=== PATIENT | female | born 1990 | race African-American/Black ===

== ENCOUNTER 2017-06-24 16:13 | Emergency (ER) | payer OTHER ==
[2017-06-24] MEDS ORDERED: Bacitracin Zinc 1 Packet ONE (16:44)
[2017-06-24] MEDS ORDERED: Adacel (T-DAP) 0.5 ML VIAL ONE (16:44)
== END 2017-06-24 17:05 | disposition home or self-care (01) ==
LOC: ERS 16:13
DX: S91.331A Puncture wound without foreign body, right foot, initial encounter (principal); S91.311A Laceration without foreign body, right foot, initial encounter; F17.210 Nicotine dependence, cigarettes, uncomplicated; Z23 Encounter for immunization; W22.8XXA Striking against or struck by other objects, initial encounter
CPT/HCPCS: 90471; 90715

== ENCOUNTER 2017-11-29 01:45 | Emergency (ER) | payer OTHER, SELFPAY | END 2017-11-29 02:59 | LOC: ERS 01:45 | DX: S00.511A Abrasion of lip, initial encounter (principal); Z23 Encounter for immunization; F17.210 Nicotine dependence, cigarettes, uncomplicated; X58.XXXA Exposure to other specified factors, initial encounter | CPT/HCPCS: 90471 ==